=== PATIENT | female | born 1995 | race Caucasian/White ===

== ENCOUNTER 2018-08-04 00:13 | Inpatient (IN) | payer OTHER ==
[2018-08-04 01:22] LABS: BLOOD UREA NITROGEN 11 mg/dL (7-21); CALCIUM 9.6 mg/dL (8.4-10.5); GFR NON-AFRICAN AMERICAN > 60
--- NOTE | 2018-08-04 01:27 | ED PDOC ---
Arrival/HPI - General Chief Complaint: Chest Pain Time Seen by Provider: 08/04/18 00:21 Historian: Patient - History of Present Illness Narrative History of Present Illness (Text): 08/04/18 01:27 23 year old female, whose past medical history includes 5 days prior at [facility], presents to the emergency department complaining of onset chest discomfort that began this morning while sleeping associated with s hortness o breath. Patient states that she finds it difficult to breathe when taking deep breath with pain on inspiration. Patient denies any fever, chills, cough, nausea, vomiting, diarrhea, urinary symptoms, back pain, neck pain, leg pain, headache, dizziness, or any other complaints. Time/Duration: Other (this morning ) Symptom Onset: Gradual Symptom Course: Unchanged Activities at Onset: Light Context: Home Past Medical History - Provider Review Nursing Documentation Reviewed: Yes - Psychiatric Hx Substance Use: No Family/Social History - Physician Review Nursing Documentation Reviewed: Yes Family/Social History: No Known Family HX Smoking Status: Never Smoked Hx Alcohol Use: No Hx Substance Use: No Allergies/Home Meds Allergies/Adverse Reactions: Allergies No Known Allergies Allergy (Verified 08/04/18 00:21) Home Medications: Home Meds Medication Instructions Recorded Confirmed No Known Home Med 08/04/18 08/04/18 Review of Systems - Physician Review All systems were reviewed & negative as marked: Yes - Review of Systems Constitutional: absent: Fevers, Other (chills) Respiratory: SOB. absent: Cough Cardiovascular: Chest Pain Gastrointestinal: absent: Abdominal Pain, Diarrhea, Nausea, Vomiting Genitourinary Female: absent: Dysuria, Frequency, Hematuria Musculoskeletal: absent: Back Pain, Neck Pain, Other (leg pain) Neurological: absent: Headache, Dizziness Physical Exam Vital Signs Reviewed: Yes Vital Signs Temp Pulse Pulse Resp BP BP Pulse Ox 08/04/18 00:32 92 H 126/80 08/04/18 00:29 98.3 F 93 H 20 126/80 100 Temperature: Afebrile Blood Pressure: Normal Pulse: Regular Respiratory Rate: Normal Appearance: Positive for: Well-Appearing, Non-Toxic, Comfortable Pain Distress: None Mental Status: Positive for: Alert and Oriented X 3 - Systems Exam Head: Present: Atraumatic, Normocephalic Pupils: Present: PERRL Extroacular Muscles: Present: EOMI Conjunctiva: Present: Normal Mouth: Present: Moist Mucous Membranes Neck: Present: Normal Range of Motion Respiratory/Chest: Present: Clear to Auscultation, Good Air Exchange. No: Respiratory Distress, Accessory Muscle Use Cardiovascular: Present: Regular Rate and Rhythm, Normal S1, S2. No: Murmurs Abdomen: Present: Distention (mild distention (s/p )). No: Tenderness, Peritoneal Signs Back: Present: Normal Inspection Upper Extremity: Present: Normal Inspection. No: Cyanosis, Edema Lower Extremity: Present: Normal Inspection. No: Edema, CALF TENDERNESS, Soy's Sign Neurological: Present: GCS=15, CN II-XII Intact, Speech Normal Skin: Present: Warm, Dry, Normal Color. No: Rashes Psychiatric: Present: Alert, Oriented x 3, Normal Insight, Normal Concentration Medical Decision Making ED Course and Treatment: 08/04/18 01:25 Impression: 23 year old female presents complaining of onset of chest discomfort that began this morning while sleeping associated with shortness of breath. Plan: -- CT Angio PE Protocol -- EKG -- Labs -- Chest X-ray -- Reassess and disposition Progress Notes: EKG shows NSR at 92 BPM with no acute changes. Interpreted by me. CT angiogram of the chest Electronically signed on August 04, 2018 2:48:00 AM EDT by: Ryley Ruth M.D., Impression: 1. No evidence of pulmonary embolism. 2. Small left-sided pleural effusion with left lower lobe infiltrate/atelectasis. 3. Minimal atelectasis in the right lower lobe. 4. Mild left axillary lymphadenopathy. 08/04/18 02:52 CXR- Left lower infiltrate/pleural effusion 08/04/18 03:[address] Nielsen who is aware and agrees with the plan. Accepts patient into his service. Request Dr. Turner and Dr. Wilder for consult. - Lab Interpretations Lab Results: Total Bilirubin 0.6 mg/dL (0.2-1.3) 08/04/18 00:44 I have reviewed the lab results: Yes - RAD Interpretation Radiology Orders: 08/04/18 00:59 ANGIO CHEST PE PROTOCOL [CT] Stat CHEST PORTABLE [RAD] Stat Smooth Stucco Resurfacer: ED Physician, Radiologist - EKG Interpretation Interpreted by ED Physician: Yes Type: 12 lead EKG - Scribe Statement The provider has reviewed the documentation as recorded by the Emiribe Edmond Magana Provider Scribe Attestation: All medical record entries made by the Emiribe were at my direction and personally dictated by me. I have reviewed the chart and agree that the record accurately reflects my personal performance of the history, physical exam, medical decision making, and the department course for this patient. I have also personally directed, reviewed, and agree with the discharge instructions and disposition. Disposition/Present on Arrival - Present on Arrival Any Indicators Present on Arrival: No History of DVT/PE: No History of Uncontrolled Diabetes: No Urinary Catheter: No History of Decub. Ulcer: No History Surgical Site Infection Following: None - Disposition Have Diagnosis and Disposition been Completed?: Yes Diagnosis: Chest pain, Pleural effusion, Pneumonia Disposition: HOSPITALIZED Disposition Time: 02:58 Patient Plan: Observation Patient Problems: Current Active Problems Problem Status Onset Chest pain Acute Pleural effusion Acute Pneumonia Acute Condition: STABLE Discharge Instructions (ExitCare): Chest Pain (ED) Forms: [facility] (Mauritanian)
[2018-08-04 01:35] LABS: HEMOGLOBIN 11.7 g/dL (12.0-16.0); MEAN CELL VOLUME 81.5 fl (80.0-105.0); MEAN CORPUSCULAR HEMOGLOBIN 26.4 pg (25.0-35.0); MEAN CORPUSCULAR HGB CONC 32.4 g/dl (31.0-37.0); MEAN PLATELET VOLUME 8.9 fl (7.0-11.0); RBC 4.43 10^6/uL (3.5-6.1); RED CELL DISTRIBUTION WIDTH 15.7 % (11.5-14.5); WHITE BLOOD COUNT 9.5 10^3/uL (4.5-11.0)
[2018-08-04 01:37] LABS: ALT/SGPT 21 U/L (7-56); AST/SGOT 44 U/L (14-36); INR 0.95; PARTIAL THROMBOPLASTIN TIME 26.1 Seconds (26.9-38.3); PROTHROMBIN TIME 10.6 SECONDS (9.4-12.5); TROPONIN I < 0.01 ng/mL
[2018-08-04] MEDS ORDERED: Iohexol 350 MG/100 ML VIAL ONE (01:49)
[2018-08-04] MEDS ORDERED: Azithromycin 500MG/NS 250ml 500 MG/250 ML BAG IV STA (03:01)
[2018-08-04] MEDS ORDERED: cefTRIAXone 1 gm 1 GM/100 ML BAG IV STA (03:01)
[2018-08-04] MEDS ORDERED: Cefepime 1gm in NS 100ml 1 GM/100 ML BAG IVPB SCH (08:00)
--- NOTE | 2018-08-04 10:45 | CARD ---
APPROVED REPORT Date of service: 08/04/2018 EKG Measurement Heart [id number] <Conclusion> Normal sinus rhythm Normal ECG
--- NOTE | 2018-08-04 11:19 | CT ---
Date of service: 08/04/2018 PROCEDURE: CT Chest with contrast (Pulmonary Angiogram) HISTORY: sob COMPARISON: None available. TECHNIQUE: Axial computed tomography images were obtained of the chest in the pulmonary arterial phase of enhancement. Coronal and sagittal reformatted images were created and reviewed. Intravenous contrast dose: 100 mL Omnipaque 350 Radiation dose: Total exam DLP = 449.35 mGy-cm. This CT exam was performed using one or more of the following dose reduction techniques: Automated exposure control, adjustment of the mA and/or kV according to patient size, and/or use of iterative reconstruction technique. FINDINGS: PULMONARY ARTERIES: Unremarkable. No pulmonary embolism. AORTA: No acute findings. No thoracic aortic aneurysm. No aortic atherosclerotic calcification or mural plaque present. LUNGS: Left lower lower patchy infiltrates. PLEURAL SPACES: Very small left pleural effusion. HEART: Unremarkable. No cardiomegaly. No significant pericardial effusion. LYMPH NODES: Small amount of thymic tissue. No lymphadenopathy. BONES, CHEST WALL: Unremarkable. No fracture or destructive lesion OTHER FINDINGS: Unremarkable. IMPRESSION: Unremarkable CT pulmonary angiogram. No pulmonary embolus. Left lower lobe patchy infiltrates with small parapneumonic effusion.
--- NOTE | 2018-08-04 11:19 | RAD ---
Date of service: 08/04/2018 HISTORY: sob COMPARISON: No prior. TECHNIQUE: 1 view obtained. FINDINGS: LUNGS: Left lower lobe infiltrate. PLEURA: Small left pleural effusion. No appreciable pneumothorax. CARDIOVASCULAR: No aortic atherosclerotic calcification present. Normal cardiac size. No pulmonary vascular congestion. OSSEOUS STRUCTURES: No significant abnormalities. VISUALIZED UPPER ABDOMEN: Normal. OTHER FINDINGS: None. IMPRESSION: Left lower lobe infiltrate with associated small effusion.
[2018-08-04] MEDS: Piperacill/Tazo 4.5gm in NS 4.5 GM/100 ML BAG IVPB SCH ×3 (11:29→21:12)
[2018-08-04] MEDS: Vancomycin 1gm in NS 250ml 1 GM/250 ML BAG IVPB SCH ×2 (11:29→21:35)
--- NOTE | 2018-08-04 14:22 | CON ---
DATE OF CONSULTATION: 08/04/2018 The patient is seen in Room 266, Bed 2. CHIEF COMPLAINT: Left-sided pleuritic chest pain x1-2 days duration. HISTORY OF PRESENT ILLNESS: This is a 23-year-old female with obesity with a BMI of 36 and she is born originally in [place] and she had a 5 days ago at [facility] at the [facility] and now has presented with pleuritic chest pain and cough, left-sided pleuritic chest pain. The patient specifically asks if she has any abdominal pain. The patient's at the bedside. The patient denies any abdominal pain, no pelvic pain, no symptoms, no nausea or vomiting, no fevers and chills, just the left-sided pleuritic chest pain. No headaches, no blurred vision, no neck pain. PAST MEDICAL HISTORY: Noncontributory except for obesity with a BMI of 36. PAST SURGICAL HISTORY: Noncontributory. MEDICATIONS AT HOME: None. ALLERGIES: THE PATIENT HAS NO KNOWN ALLERGIES. PHYSICAL EXAMINATION: GENERAL: She is in bed, answering questions appropriately. VITAL SIGNS: Temperature of 98, heart rate of 93, was up to 104, and blood pressure is 126/80. HEENT: Unremarkable. NECK: Supple. LUNGS: Decreased breath sounds on the left side. HEART: Normal S1, S2. ABDOMEN: Soft, nontender. No rebound or guarding. Completely benign abdomen. The incision site is clean, no evidence of infection. LABORATORY EXAMINATION: Reveals the patient's white count of 9.5, hemoglobin of 11, and platelets of 515,000. Coagulations are reviewed. The patient does have an elevated D-dimer of 947, INR of 0.95. Chemistries reveal the AST is 44, creatinine 0.5. There is no urinalysis. ASSESSMENT AND PLAN: This is a 23-year-old female originally born in [place] with obesity with a BMI of 36, status post 5 days ago at [facility], now presenting with #1 is chest pain with left-sided healthcare associated pneumonia with effusion, postop day #5 with . She has no abdominal pain, no pelvic discomfort, and no evidence of endometritis and/or deep pelvic vein thrombosis and phlebitis of the pelvic vein. She did have a CT angio, which is negative for pulmonary emboli and is positive for left infiltrate and effusion. The official report is not available. She also had a chest x-ray, which is also not available. We will treat the patient with vancomycin and Zosyn. I have explained to the patient that she is not to breastfeed and to pump the milk and discard or sort away the milk and I have told also to the , they understand, and I have also directed them once upon discharge to continue to do so and keep continue to pump the milk and discard it until 2 days after the completion of cessation of the antibiotics, so not to expose the child to any antibiotics and I have also explained to the nursing staff and Dr. Bill Nielsen regarding further education and helping breast-feeding and the antibiotic use until the antibiotic therapy is over plus 2 days off of antibiotics she may resume breast feeding. We will order blood cultures, urine cultures, urinalysis, sputum cultures, procalcitonin, vanco and Zosyn, and assuming the patient had an HIV test during her and we will follow with you. We will also order a procalcitonin. Corbin Wilder MD
[2018-08-04 19:48] LABS: PH,URINE 6.5 (4.7-8.0); URINE BILIRUBIN NEGATIVE (NEGATIVE); URINE BLOOD LARGE (NEGATIVE); URINE GLUCOSE (UA) NEGATIVE (NEGATIVE); URINE LEUKOCYTE ESTERASE MODERATE Leu/uL (NEGATIVE); URINE PROTEIN NEGATIVE mg/dL (<30 mg/dL); URINE UROBILINOGEN 0.2 E.U./dL (<1 E.U./dL)
[2018-08-04 20:01] LABS: URINE APPEARANCE CLOUDY (CLEAR); URINE COLOR YELLOW (YELLOW)
[2018-08-04 20:02] LABS: URINE BACTERIA FEW /hpf
--- NOTE | 2018-08-04 21:10 | HP ---
DATE OF EXAM: 08/04/2018 HISTORY OF PRESENT ILLNESS: I saw her in her room. She is a 23-year-old female who 5 days ago delivered at [facility], which is [facility] to do a and then developed difficulty breathing at home, ended up coming to the emergency room and we actually found a left pneumonia on chest x-ray, but she is now in the hospital with IV antibiotics. She is very upset because she wants to be at home with her baby. FAMILY HISTORY: She has unknown family history. PAST MEDICAL HISTORY: She has no medical history except for a surgery that is a . SOCIAL HISTORY: No smoker. No drinking. No drugs. ALLERGIES: NO KNOWN DRUG ALLERGIES. MEDICATIONS: No apparent medications. She does take vitamins. REVIEW OF SYSTEMS: No fevers or chills. There is shortness of breath but no cough. There is a little chest pain. No abdominal pain, nausea, vomiting, constipation, or diarrhea. Occasional abdominal pain from the site. No problems urinating. No back pain. No headache or dizziness. PHYSICAL EXAMINATION GENERAL: She is very distressed. She is crying at this time when I am examining her because she does not want to stay in the hospital with a at home. She is nontoxic, looking alert and oriented x3. VITAL SIGNS: She has a 98.3 temperature, 93 pulse, 20 respiratory rate, 126/80 blood pressure, and 100% O2 sat. HEENT: Head; atraumatic, normocephalic. Extraocular muscles are intact. Throat is moist. NECK: Supple. Thyroid midline. LUNGS: Decreased breath sounds on the left side more than the right, but fairly clear overall. HEART: Regular rate. Normal S1, S2. ABDOMEN: Soft, obese, and nontender. There is some tenderness but she has bowel sounds. She is moving her bowels. EXTREMITIES: No edema. NEUROLOGIC: GCS is 15. Cranial nerves II through XII grossly intact. Alert and oriented x3. SKIN: As far as I could tell is warm and dry. No apparent rashes or ulcers. DIAGNOSTIC DATA: Unfortunately on the chest x-ray, it did show a left pneumonia. She also had a CT scan of the chest, which is a CT angio since she had a surgery they were looking for PE and for what it says here, it says no evidence of pulmonary embolism, a small left-sided pleural effusion with left lower lobe infiltrate, atelectasis is minimal atelectasis in the right lower lobe, mild left axillary lymphadenopathy. So, no PE but there is a pneumonia unfortunately. She is very upset about being in the hospital. EKG showed normal sinus rhythm. LABORATORY DATA: She has a 9.5 white count, 11.7 hemoglobin, 36.1 hematocrit with 515 platelets. INR is 0.95. The D-dimer was elevated at 947 and that is why they did the CT to rule out PE. A 138 sodium, potassium 4.6, BUN 11, creatinine 0.5, GFR is greater than 60, sugar is 101, calcium is 9.6, total bili is 0.6. AST is 44, ALT is 21, alk phos 81. Lactate dehydrogenase is 6.6. Total creatine kinase is 76. Troponin I is less than 0.01. Total protein is 7.9, albumin is 4. ASSESSMENT AND PLAN: So she has this left pneumonia. She will be on intravenous antibiotics. Presently she is on cefepime. She did get a dose or two of Rocephin and Zithromax when she got in. She also had some Zofran and like I said she is on Zosyn right now. The Maxipime I guess will be stopped. Hopefully she will improve fast and we will discharge her when we can and then later when inpatient, which can be no longer than 2 overnights. Bill Nielsen DO
[2018-08-05] MEDS: Piperacill/Tazo 4.5gm in NS 4.5 GM/100 ML BAG IVPB SCH ×3 (05:26→23:10)
[2018-08-05 07:16] LABS: HEMOGLOBIN 10.8 g/dL (12.0-16.0); MEAN CELL VOLUME 81.2 fl (80.0-105.0); MEAN PLATELET VOLUME 8.5 fl (7.0-11.0); RBC 4.15 10^6/uL (3.5-6.1); RED CELL DISTRIBUTION WIDTH 15.5 % (11.5-14.5); WHITE BLOOD COUNT 6.3 10^3/uL (4.5-11.0)
[2018-08-05 07:44] LABS: ALBUMIN 3.4 g/dL (3.0-4.8); ALT/SGPT 17 U/L (7-56); AST/SGOT 26 U/L (14-36); BLOOD UREA NITROGEN 11 mg/dL (7-21); CALCIUM 8.6 mg/dL (8.4-10.5); GFR NON-AFRICAN AMERICAN > 60
--- NOTE | 2018-08-05 08:07 | PN ---
DATE: 08/05/2018 SUBJECTIVE: The patient is in bed. She is doing better. Her is in the chair, sleeping. PHYSICAL EXAMINATION: VITAL SIGNS: Temperature is 97. The patient states she wants to go home. Blood pressure 114/70, respiratory rate of 20, heart rate of 96. HEENT: Unremarkable. NECK: Supple. LUNGS: Have decreased breath sounds. HEART: Normal S1, S2. ABDOMEN: Soft, nontender. LABORATORY DATA: Laboratory examination reveals a white count of 9.5, hemoglobin of 11. Chemistries reveals a BUN of 11, creatinine of 0.5. Procalcitonin 0.05. Urinalysis is noted and the patient 's ultrasound of the lower extremity is pending. ASSESSMENT AND PLAN: This is a 23-year-old female originally born in [place] with obesity with body mass index of 36, status post section 5 days ago at [facility] presenting with chest pain, left-sided healthcare-associated pneumonia with effusion, postop day #6 with section and the blood cultures are negative, awaiting for blood cultures and MRSA screen and urine cultures and we will repeat a procalcitonin this morning. Currently on vanco and Zosyn, waiting for lower extremity Doppler results, may be able to switch to p.o. antibiotics and discharge the patient. I have explained to the patient that she is not to breastfeed while she is getting antibiotics and she should wait at least 48 hours after the antibiotics are completed prior to starting again and she is to discard the breast milk. Corbin Wilder MD
--- NOTE | 2018-08-05 08:13 | US ---
HISTORY: Leg pain and swelling. Evaluate for DVT PHYSICIAN(S): Saúl Carlson MD. TECHNIQUE: Duplex sonography and color-flow Doppler with graded compression were used to evaluate the deep venous systems of both lower extremities. FINDINGS: The visualized deep venous systems of both lower extremities are sonographically normal and compressible. Normal wave forms and augmentation are seen. There is no sonographic evidence for deep venous thrombosis in the visualized segments of both lower extremities. IMPRESSION: No sonographic evidence for deep venous thrombosis in the visualized segments of both lower extremities.
[2018-08-05] MEDS: Vancomycin 1gm in NS 250ml 1 GM/250 ML BAG IVPB SCH ×2 (10:17→21:29)
--- NOTE | 2018-08-05 10:45 | PN ---
DATE: 08/05/2018 PULMONARY PROGRESS NOTE SUBJECTIVE: The patient was seen and examined at bedside. She states she feels better, but still has pain on deep inspiration in anterior chest. PHYSICAL EXAMINATION: VITAL SIGNS: Temperature 97.6, pulse 96, respirations 20, pulse oximetry 95 on the room air. HEENT: Head is normocephalic and atraumatic. NECK: Supple with no jugular vein distention. CARDIOVASCULAR: S1 and S2. No S3, regular. PULMONARY: Crackles at left lung base consistent with pneumonia. GASTROINTESTINAL: Soft and nontender. No organomegaly. EXTREMITIES: No pedal edema. No cyanosis. NEUROLOGIC: No focal deficits. SKIN: No acute skin rash. ASSESSMENT: 1. Left lower lobe pneumonia. 2. Status post section six days ago. PLAN: I have reviewed today's blood work which is pretty normal except for mild anemia, WBCs are 6.3 and hemoglobin of 10.8. Her chemistries are within normal range. There is still concern about crackles in the left base indicating significant pneumonia. I have discussed this with Dr. Nielsen. The patient will receive one more day of intravenous antibiotics then switch to oral antibiotics. I also ordered repeat chest x-ray which is not done yet. Her lower extremities ultrasound which are ordered yesterday are negative for DVT. Jose Jay MD MTDD
--- NOTE | 2018-08-05 11:12 | RAD ---
Date of service: 08/05/2018 HISTORY: crackles/comparison admission xray COMPARISON: Chest radiograph dated 08/04/2018. TECHNIQUE: 1 view obtained. FINDINGS: LUNGS: Left lower lobe infiltrate. PLEURA: Small left pleural effusion. No appreciable pneumothorax. CARDIOVASCULAR: No aortic atherosclerotic calcification present. Normal cardiac size. No pulmonary vascular congestion. OSSEOUS STRUCTURES: No significant abnormalities. VISUALIZED UPPER ABDOMEN: Normal. OTHER FINDINGS: None. IMPRESSION: Left lower lobe infiltrate with so seated small effusion.
--- NOTE | 2018-08-05 12:43 | PN ---
DATE: 08/05/2018 SUBJECTIVE: I saw Alina this morning; was present. They are crying; they want to go home. She has a left-sided pneumonia. She had a at [facility], [facility] of [place]. She had a hospital-acquired pneumonia, so she will be on 24 hours on IV antibiotics, and they wanted to go home to a new born baby. I understand that, but it is a hospital-acquired pneumonia. She is on vancomycin and Zosyn. She is still not breathing well. PHYSICAL EXAMINATION: VITAL SIGNS: She has a 97.6 temperature, 96 pulse, 114/72 blood pressure, 20 respiratory rate, and 95% O2 saturation on room air. HEENT: Head is atraumatic and normocephalic. HEART: Regular rate. LUNGS: Decreased breath sounds actually. After talking with the allergist/immunologist because of the left lung has more crackles on the day before, and I agree with that. I am hoping sitting up, and she will cough up more, but it sound like a worse day than yesterday. ABDOMEN: Soft and obese. EXTREMITIES: No edema. LABORATORY DATA: There is a chest x-ray ordered; looking at. She has a 6.3 white count, 10.8 hemoglobin, 33.7 hematocrit with a 450 platelets. The D-dimer is elevated at 947. She has a 136 sodium, potassium 4, BUN 11, creatinine 0.6, GFR is greater than 60, and sugar is 101. Calcium is 8.6, total bili is 0.3, AST is 26, ALT is 17, alk phos 78, and total protein 6.8. Urine with moderate leukocytes. She had an ultrasound of the lower extremities because of her recent , recent surgery, and high D-dimer that was negative. The CAT scan angio showed a pneumonia, left lower lobe. ASSESSMENT AND PLAN: I discussed this with Pulmonary and Infectious Disease. We all agree to continue IV antibiotics. It is too early to stop it and change it to p.o. antibiotics. Waiting for the chest x-ray to come back. I discussed this with the and the patient, they are very upset. They cannot be discharged today. I also explained to them the importance of her breast-feeding that she has to pump everyday and discard while she is on antibiotics; do not give the breast milk to the baby, they know this. So, also when we do change it to oral antibiotics, she has to give two more days of whatever they using before they can restart breast milk and they have to pump and discard in the meantime, they understand that because of the safety of the baby with these very strong antibiotics she will be on and that could affect the baby and they know that. I am still concern about the lungs. I think she is still using IV antibiotics. I discussed with the Infectious Disease and Pulmonary. We will continue with aggressive treatment and care, Alina top-up with the pneumonia, status post less than six days ago. Bill Nielsen DO MTDD
[2018-08-06] MEDS: Piperacill/Tazo 4.5gm in NS 4.5 GM/100 ML BAG IVPB SCH (05:00)
[2018-08-06 06:23] VITALS: BP 103/67; PULSE 83; RESP 18; TEMP 97.6; O2SAT 95
--- NOTE | 2018-08-06 08:36 | CON ---
DATE: 08/04/2018 PULMONARY CONSULTATION HISTORY OF PRESENT ILLNESS: A 23-year-old female, who has a history of recent section 5 days prior at [facility], presented to [facility] with complaints of chest pain radiating into her back. Chest pain is increasing with every respiration. Chest pain was started while she was asleep, and this was accompanied by shortness of breath. She coughs only occasionally and does not bring any sputum. There is no hemoptysis. She denies any leg problems or leg swelling. She complained of nausea. FAMILY HISTORY: No history of inherited diseases. SMOKING STATUS: Never smoked. OTHER HABITS: No alcohol. No substance abuse. ALLERGIES: NO KNOWN ALLERGIES. HOME MEDICATIONS: She is not on any medications at home. REVIEW OF SYSTEMS: Conducted by reviewing all sources. CONSTITUTIONAL: No history of fever or chills. RESPIRATORY: No cough. CARDIOVASCULAR: See history of present illness. GASTROINTESTINAL: No abdominal pain, but admits to nausea. MUSCULOSKELETAL: No back pain. No leg swelling. NEUROLOGICAL: No headaches. No dizziness. The rest of the systems was reviewed and found to be negative. PHYSICAL EXAMINATION: GENERAL: She is awake, alert; in no acute distress. VITAL SIGNS: Her temperature is 98, pulse 92, respirations 20, blood pressure is 126/80, and pulse oximetry is 100%. HEENT: Head, normocephalic and atraumatic. NECK: Supple with no jugular vein distention. CHEST: Symmetrical. CARDIOVASCULAR: S1 and S2. No S3. Regular. PULMONARY: Diminished breath sounds at both bases with few rhonchi, left more than the right. No wheezing. GASTROINTESTINAL: Soft and nontender. No organomegaly. : Within normal limits EXTREMITIES: No pedal edema. No cyanosis. No calf muscle tenderness. SKIN: Dry; intact Additional studies reviewed. Chest x-ray demonstrates haziness at the left lung base. No cardiomegaly. The rest of the lungs is clear. I had reviewed the CT angiogram and CT scan of chest. It demonstrates no evidence of pulmonary embolism per Radiology. There is infiltrate with some air bronchogram in the left lower lobe. There are minimal effusions and minimal atelectatic changes. LABORATORY DATA: Laboratory results were reviewed by me. D-dimer was elevated at 947. Coagulation studies are normal. Hematology shows hemoglobin of 11.7, WBCs are 9.5, platelet count is 515,000. Her creatinine is 0.5 suggests borderline elevation of AST at 44. The rest of the chemistries is normal. The patient was evaluated by Infectious Disease systems management consultant and started on vancomycin and piperacillin. She feels better overall; however, she still has substernal chest pain. Due to borderline elevation of D-dimer, I will request bilateral Doppler of lower extremities for conformation that this is not thromboembolic event. ASSESSMENT: 1. Left lower lobe pneumonia. 2. Chest pain, pleuritic in origin. 3. Status post section delivery of normal baby 5 days prior to that. DISCUSSION: There is a pneumonic infiltrate in the left lower lobe. Hospital acquired versus aspiration pneumonia should be considered. Aspiration pneumonia is more likely due to anesthesia and section. She is on appropriate antibiotic coverage, it also covers the anaerobes. The CT angiogram is negative for PE; however, additional study is in order because of high risk of prothrombotic conditions, like and surgery section. This was discussed with Dr. Nielsen and Dr. Wilder. Jose Jay MD [facility]
--- NOTE | 2018-08-06 08:48 | PN ---
DATE: 08/06/2018 SUBJECTIVE: The patient appears very comfortable this morning. She is not short of breath at rest. OBJECTIVE: VITALS: Temperature is 97.6, pulse 83, respirations 18, blood pressure 103/67. Oxygen saturation on room air 95% to 100%. HEENT: Normocephalic, atraumatic. No JVD. CARDIOVASCULAR: Positive S1, S2. No S3 gallop. LUNGS: Minimal crackles - left base. Otherwise, clear. EXTREMITIES: No clubbing, cyanosis, or edema. Calves are nontender to palpation. GASTROINTESTINAL: Abdomen is soft, nontender, and nondistended. Bowel sounds are positive. SKIN: No acute rash. NEUROLOGIC: Exam limited at the present time. PERTINENT LABORATORY DATA: Chest x-ray was repeated yesterday and reviewed. There is a very small left basilar infiltrate noted. The left hemidiaphragm is mildly elevated. There may be a very small left pleural effusion also. CBC: White count 6.3K, hemoglobin 10.8, hematocrit 33.7, platelets of 450,000. IMPRESSION: 1. Left lower lobe pneumonia. 2. Small left pleural effusion. 3. Status post recent . 4. Mild anemia. PLAN: The patient appears very comfortable this morning. She is not short of breath at rest. She does state to feeling much, much better overall, and is asking to go home. I did discuss the case with the patient and (at bedside) at length. I did review the chest x-ray done yesterday. Findings are noted above. On physical exam, there is no bronchospasm noted. In addition, there is no significant alveolar arterial gradient. Oxygen saturation on room air is 95% to 100%. There have been no temperature spikes while in the hospital. In addition, there is no leukocytosis. Lastly, cultures are so far negative. Clinical status of the patient appears significantly improved - compared to the initial presentation. Again, the patient is asking to go home today. I will discuss the above with Dr. Nielsen later this morning. I also discussed the case with my partner, Dr. Jay. Chaitanya Turner MD [facility] # [id number] MTDDeanne
--- NOTE | 2018-08-06 14:03 | PN ---
DATE: 08/06/2018 SUBJECTIVE: The patient was in room 266. Very anxious about going home and the patient is doing well. No fevers and chills. Vitals are stable and case was discussed with Dr. Turner and Dr. Nielsen. Repeat chest x-ray from yesterday is reviewed. ASSESSMENT AND PLAN: This is 23-year-old with status post , on vancomycin and Zosyn, postop day #7. Cultures are negative. Procalcitonin negative x2. Nares negative. Recommended ampicillin to Dr. Nielsen for discharge to follow up as outpatient. The patient's understands and will follow closely with the patient. Corbin Wilder MD
--- NOTE | 2018-08-07 00:55 | DS ---
HOSPITAL COURSE: She is about 7 days post . She had a left pneumonia. She was in the hospital. I discussed with Pulmonary and Infectious Disease. She is going to be discharged and she will go home on amoxicillin 500 mg three times a day for five days. She knows that she is going to start on the eighth day after she has done with the amoxicillin 2 days later. She will pump and discard breast milk at this time. PHYSICAL EXAMINATION: VITAL SIGNS: She has 97.6 temperature, 83 pulse, 103/67 blood pressure, 18 respiratory rate and 95% sat on room air. HEAD: Atraumatic and normocephalic. HEART: Regular rate. LUNGS: Clear to auscultation bilaterally, yesterday was congested, today is completely clear with a big difference. ABDOMEN: Soft and obese. She has pain. EXTREMITIES: No edema. LABORATORY DATA: She has 6.3 white count, 10.8 hemoglobin and 450 platelets. A 136 sodium, potassium 4, BUN of 11, creatinine 0.6, GFR is greater than 60, sugar is 101, calcium is 8.6, total bili is 0.3, AST is 26, ALT is 17, alk phos is 78 and total protein 6.8. She actually did quite well and quite fast. I will discharge her today. She had left pneumonia. She is status post , 7 days today. She will be on amoxicillin 500 three times a day for 5 more days. She can start again on the eighth day. She understands this and to pump and discard until then and that she should be good to go. She will let us know if anything changes. Bill Nielsen DO
== END 2018-08-06 09:11 | disposition home or self-care (01) | DRG 194 ==
LOC: ED 00:13 → ERH 03:08 → 2RNO 04:00 → OBSVTOIN 10:10
PROVIDERS: ADMIT Family Medicine; ATTEND Family Medicine
DX: J18.1 Lobar pneumonia, unspecified organism (principal); J90 Pleural effusion, not elsewhere classified; J98.11 Atelectasis; O99.53 Diseases of the respiratory system complicating the puerperium; O99.215 Obesity complicating the puerperium; E66.9 Obesity, unspecified; Y95 Nosocomial condition; D64.9 Anemia, unspecified